=== PATIENT | female | born 1940 | race Caucasian/White ===

== ENCOUNTER → 2017-10-27 | Outpatient (CLI) | payer OTHER ==
[2017-10-27 12:56] LABS: BASO % 1.9 %; BASO ABS # 0.09 K/uL (0-0.2); EOS % 5.4 %; EOS ABS # 0.26 K/uL (0-0.5); HEMATOCRIT 38.8 % (37-47); HEMOGLOBIN 13.9 g/dL (12.0-16.0); IG# 0.01 K/uL (0.00-0.02); LYMPH % 31.1 %; MEAN CELL VOLUME 91.3 fL (80-100); MEAN CORPUSCULAR HEMOGLOBIN 32.7 pg (25-34); MEAN CORPUSCULAR HGB CONC 35.8 g/dl (32-36); MEAN PLATELET VOLUME 10.4 fL (7.4-10.4); MONO % 8.9 %; MONO ABS # 0.43 K/uL (0.11-0.59); NEUT % 52.5 %; NEUT ABS # 2.54 K/uL (1.4-6.5); PLATELET COUNT 156 K/uL (130-400); RED CELL DISTRIBUTION WIDTH CV 13.4 % (11.5-14.5); RED CELL DISTRIBUTION WIDTH SD 44.5 fL (36.4-46.3); WHITE BLOOD COUNT 4.83 K/uL (4.8-10.8)
[2017-10-27 14:21] LABS: ALBUMIN 3.9 gm/dl (3.4-5.0); ALT/SGPT 39 U/L (12-78); AST/SGOT 19 U/L (15-37); BLOOD UREA NITROGEN 14 mg/dl (7-18); CALCIUM 8.9 mg/dl (8.5-10.1); CARBON DIOXIDE 26 mmol/L (21-32); CHOLESTEROL 153 mg/dl (0-200); CREATININE 1.04 mg/dl (0.60-1.20); GLUCOSE 110 mg/dl (70-99); POTASSIUM 3.6 mmol/L (3.5-5.1); SODIUM 137 mmol/L (136-145); TOTAL PROTEIN 7.3 gm/dl (6.4-8.2)
[2017-10-27 14:30] LABS: ALKALINE PHOSPHATASE 59 U/L (45-117); LDL CHOLESTEROL CALCULATED 79 mg/dl
== END | disposition home or self-care (01) ==
LOC: C.LABMFLN 08:16
PROVIDERS: ATTEND Family Medicine
DX: I10 Essential (primary) hypertension (principal); E78.00 Pure hypercholesterolemia, unspecified; E03.9 Hypothyroidism, unspecified; M81.0 Age-related osteoporosis without current pathological fracture; K59.09 Other constipation